=== PATIENT | female | born 1955 | race Caucasian/White ===

== ENCOUNTER 2023-08-18 07:04 | Day surgery (SDC) | payer MEDICARE, SELFPAY ==
[2023-06-17 10:37] VITALS: BMI 29.8
[2023-08-01 13:42] VITALS: BMI 29.4
--- NOTE | 2023-08-18 07:29 | P.PNAN_ITS ---
Anes - Initial Pre Proc Eval Procedure: Operation Date: 08/18/23 09:30 Proposed Procedures p Diagnostic Colonoscopy - Jaspal Martin MD Date/Time: 08/18/23 07:29 Surgeon: Jaspal Martin MD Pre Op Diagnosis: History of Colon Polyps Patient Data Age: 68 Gender: F Height: 1.57 m Weight: 73 kg Allergies Allergy/AdvReac Type Severity Reaction Status Date / Time No Known Allergies Allergy Verified 08/18/23 08:00 Home Medications Medication Instructions Recorded Confirmed Type levothyroxine 75 mcg tablet 75 mcg PO DAILY #90 tabs 05/19/23 08/18/23 Rx sodium,potassium,mag sulfates 17.5 See Rx Instructions PO .COMPLEX 06/17/23 08/18/23 Rx gram-3.13 gram-1.6 gram oral soln #354 mL (Suprep Bowel Prep Kit) ezetimibe 10 mg tablet 10 mg PO DAILY #90 tabs 06/20/23 08/18/23 Rx Patient hx anesthesia problems: none Family hx anesthesia problems: none Results Review: All pre-operative results and documents have been reviewed as part of the pre- operative evaluation. [facility] Past Medical History Medical History (Updated 08/18/23 @ 08:40 by Jaspal Martin MD) Hypothyroidism, unspecified Pure hypercholesterolemia, unspecified Family History Family History Father Alzheimer's dementia Diabetes mellitus Mother Breast cancer Social History Social History (Updated 05/19/23 @ 13:58 by Pascale Chavez) Smoking status: Never smoker Alcohol intake: never Substance use: never Substance use type: does not use Lack of Transportation: No Lack of Food: Never True Current Housing: I Have Housing Concerned About Future Housing: YES Difficulty Paying Gas/Electric Bills: No Difficulty Paying for Meds: No Currently Unemployed: No Education: Bachelor's Degree Difficulty w/ Childcare or Family Care: No Living arrangements: with family Occupation/Education: retired Gender identity (if verbalized by the patient): Female Sexual Orientation (if Verbalized by the Patient): Straight or Heterosexual Spiritual care concerns: No Anes - Eval Final PreProcedure Day of Procedure 08/18/23 07:29 Patient weight: overweight Heart: regular rate and rhythm Lungs: clear to auscultation Airway: Mallampati scale class II Neurological: alert and oriented Last oral intake: >/= 8 hours ASA classification: II Emergent: no Anesthetic plan: proceed Anesthesia type and monitoring: general GIVS and standard monitoring Results Review: All pre-operative results and documents have been reviewed as part of the pre- operative evaluation. Informed Consent: The patient's anesthetic plan and its attendant risks and benefits were discussed with the patient/family/POA. Questions were solicited and answers provided to the satisfaction of the patient/family/POA.
[2023-08-18 08:02] VITALS: BP 139/77; PULSE 83; RESP 20; TEMP 36.7; O2SAT 97
[2023-08-18] MEDS: LACTATED RINGERS 1,000 ML 150 ML IV CONT (08:16)
--- NOTE | 2023-08-18 08:39 | P.HP_ITS ---
History of Present Illness History of Present Illness Consent: Risks, benefits, and alternatives have been discussed and questions answered. Patient agrees to proceed with procedure. Chief complaint: History of Colon Polyps Narrative: Jeana Quick is a 68 year old female Presents for screening colonoscopy. Patient's current weight appetite is are normal. Patient denies abdominal pain. She has had no bleeding. Family history noncontributory. Patient does have a prior history of colon polyps 10 years ago. Review of Systems Review of Systems: Review of Systems noncontributory. [facility] Past Medical History Medical History (Updated 08/18/23 @ 08:40 by Jaspal Martin MD) Hypothyroidism, unspecified Pure hypercholesterolemia, unspecified Family History Family History Father Alzheimer's dementia Diabetes mellitus Mother Breast cancer Social History Social History (Updated 05/19/23 @ 13:58 by Pascale Chavez) Smoking status: Never smoker Alcohol intake: never Substance use: never Substance use type: does not use Lack of Transportation: No Lack of Food: Never True Current Housing: I Have Housing Concerned About Future Housing: YES Difficulty Paying Gas/Electric Bills: No Difficulty Paying for Meds: No Currently Unemployed: No Education: Bachelor's Degree Difficulty w/ Childcare or Family Care: No Living arrangements: with family Occupation/Education: retired Gender identity (if verbalized by the patient): Female Sexual Orientation (if Verbalized by the Patient): Straight or Heterosexual Spiritual care concerns: No Meds Home Medications and Allergies Home Medications Medication Instructions Recorded Confirmed Type levothyroxine 75 mcg tablet 75 mcg PO DAILY #90 tabs 05/19/23 08/18/23 Rx sodium,potassium,mag sulfates 17.5 See Rx Instructions PO .COMPLEX 06/17/23 08/18/23 Rx gram-3.13 gram-1.6 gram oral soln #354 mL (Suprep Bowel Prep Kit) ezetimibe 10 mg tablet 10 mg PO DAILY #90 tabs 06/20/23 08/18/23 Rx Allergies Allergy/AdvReac Type Severity Reaction Status Date / Time No Known Allergies Allergy Verified 08/18/23 08:00 Vital Signs Vital Signs - 24 hr 08/18/23 08:02 Temperature 98.1 F Pulse Rate 83 Respiratory Rate 20 Blood Pressure 139/77 Pulse Oximetry 97 Oxygen Delivery Room Air Exam Narrative: physical exam reveals patient to be alert. Vital signs stable. HEENT exam is unremarkable. Patient is anicteric. Lungs are clear to auscultation and percussion. Heart is without murmur or extra sounds. Abdomen bowel sounds are present soft nontender with no organomegaly . digital external rectal exam is normal. Assessment and Plan Assessment and plan (1) History of colon polyps: Code(s): Z86.010 - Personal history of colonic polyps Status: Acute Assessment and Plan: Patient has a distant history of colon polyps 10 years ago. Patient presents today for screening exam.
[2023-08-18 10:25] VITALS: BP 106/58; PULSE 82; RESP 18; O2SAT 98
[2023-08-18 10:35] VITALS: BP 122/74; PULSE 69; RESP 16; O2SAT 99
[2023-08-18 10:45] VITALS: BP 136/74; PULSE 64; RESP 16; O2SAT 99
--- NOTE | 2023-08-18 13:52 | WPDANESPN ---
Anes - Prog Note Post-Op Date/Time: 08/18/23 13:52 Cardiovascular status: normal Respiratory status: normal Airway patency: baseline Mental status: baseline Post-Op hydration status: normal Vital Signs: Last Vital Signs Temp 36.7 C 08/18/23 08:02 Pulse 64 08/18/23 10:45 Resp 16 08/18/23 10:45 BP 136/74 08/18/23 10:45 Pulse Ox 99 08/18/23 10:45 O2 Del Method Room Air 08/18/23 10:45 Pain Score (VAS): 0 I/O: Intake & Output 08/17/23 08/18/23 08/18/23 23:59 07:59 15:59 Intake Total 900 Balance 900 Post-procedural complaints: none Patient Feedback: Patient satisfied with anesthetic care. Other Findings: Patient vital signs back to baseline. Patient denies nausea and vomiting. Patient's pain under control. Patient OK for discharge.
== END 2023-08-18 10:57 | disposition home or self-care (01) ==
PROVIDERS: PCP Family Medicine Adolescent Medicine; Visit Provider Internal Medicine Gastroenterology
PROC: 0DJD8ZZ Inspection of Lower Intestinal Tract, Via Natural or Artificial Opening Endoscopic (ICD-10-PCS; CPT 45378; principal; 2023-08-18 09:30)
DX: Z86.010 Personal history of colon polyps (principal); K57.30 Diverticulosis of large intestine without perforation or abscess without bleeding; K64.8 Other hemorrhoids
CPT/HCPCS: 45378